=== PATIENT | female | born 1945 | race Caucasian/White ===

== ENCOUNTER 2022-04-12 23:45 | Observation (INO) ==
[2022-04-13] MEDS ORDERED: CARDIZEM INJ 125 MG VIAL ONE (00:35)
--- NOTE | 2022-04-13 00:36 | DR.HTN ---
HPI Time Seen Time Seen by Provider: 04/13/22 00:35 Primary Care Physician Primary Care Physician: HARTMAN Complaints Chief Complaint Doctors Comments: HYPERTENSION WITH HEART PALPATATIONS WHILE LAYING IN BED. Chief Complaint:: HYPERTENSION, HEART RACING AWAY WHILE LYING IN BED COVID-19 Coronavirus risk:travel/contact w/high risk person: No Has patient experienced Coronavirus symptoms: No Source History Provided: Patient and Family Member Mode of Arrival Mode of Arrival: Ambulatory Timing Onset of Chief Complaint: 04/12/22 PMH PMH Past Medical History: Yes Past Medical History: Hypertension Past Surgical History: Yes Surgical History: Other Past Surgical History Comment: CYST REMOVAL Family History History of Family Medical Conditions: Yes Family Medical History: Hypertension Social History Does patient currently use any type of tobacco product: No Have you used tobacco products in the last 12 months: No Type of Tobacco Use: None Does any household member use tobacco: No Alcohol Use: None Do you use any recreational Drugs:: No Lives With: Alone Lives Where: Home Travel Risk Coronavirus risk:travel/contact w/high risk person: No Has patient experienced Coronavirus symptoms: No Infectious screening In the last 2 months have you had wt loss of >10#?: NO Have you had fever, night sweats or hemotysis?: No Have you traveled outside the country in the last 6 months?: No Isolation: Standard ROS Review of Systems Constitutional: Other (RAPID HEART RATE) Eyes: No Symptoms Reported ENTM: No Symptoms Reported Respiratoy: No Symptoms Reported Cardiovascular: Palpitations Gastrointestinal/Abdominal: No Symptoms Reported Genitourinary: No Symptoms Reported Neurological: No Symptoms Reported Musculoskeletal: No Symptoms Reported Integumentary: No Symptoms Reported Hematologic/Lymphatic: No Symptoms Reported Endocrine: No Symptoms Reported Psychiatric: No Symptoms Reported PE Vital Signs Vitals: Temperature 98.1 F Pulse Rate 82 Respiratory Rate 26 Blood Pressure [Left Arm] 166/77 Blood Pressure 119/80 O2 Sat by Pulse Oximetry 98 General Limitations: No Limitations Head Head Exam: Normal Inspection and Atraumatic Eyes Eye exam: Normal Appearance, PERRL and EOMI Pupils: Regular, Round: Bilateral and Reactive: Bilateral Neck Neck Exam: Normal Inspection, Full ROM and Trachea Midline Chest Chest Inspection: Normal Inspection and Symmetric Chest Wall Rise Cardiovascular Cardiovascular Exam: Tachycardia and Irregular Rhythm Abdominal Exam Abdominal Exam: Normal Inspection, Normal Bowel Sounds and Soft Extremities Extremities Exam: Normal Inspection and Full ROM Back Back Exam: Normal Inspection and Full ROM Neurologic Neurological Exam: Alert and Oriented X3 Patient Oriented To: Person, Place and Time Speech: Fluid Speech Cranial Nerve Exam: EOM Function (II, III, IV, ): Normal, Facial Sensation (V): Normal, Facial Palsy (VII): Normal and Gag reflex (XI): Normal Motor Strength - LUE: 5/5 Motor Strength - RUE: 5/5 Motor Strength - LLE: 5/5 Motor Strength - RLE: 5/5 MDM Differential Diagnosis Differential Diagnosis Comment: AFIB WITH RVR COURSE Treatment Treatment: PATIENT REMAINED STABLE DURING ER EVALUTION. WAS INITIALLY GIVEN CARDIZEM 10MG IV TO CONTROL AFIB WITH RVR AND RATE DECREASED FROM 140'S TO 110 - 120'S BUT CONTINUED TO INCREASE BACK UP AND WAS STARTED ON CARDIZEM DRIP AT 10MG/HOUR AND RATE REMAINED BELOW 100BPM. DR JACOBSON WS CALLED AT 453 AND HE STATED THAT HE WOULD ACCEPT THE PATTIENT FOR ADMISSION. THE PATIENT WAS MADE AWRE OF THE INTENT AND AGREED TO THE ADMISSION. ROR Labs Reviewed Laboratory Results Reviewed?: Yes Result Diagrams: 04/13/22 00:26 04/13/22 00:26 Laboratory: WBC 6.1 X10^3/uL (3.6-10.0) 04/13/22 00: RBC 3.87 X10^6/uL (3.5-5.4) 04/13/22 00: Hgb 11.6 g/dL (12.0-16.0) L 04/13/22 00:26 Hct 33.3 % (36.0-47.0) L 04/13/22 00: MCV 86.1 fL (80.0-100.0) 04/13/22 00: MCH 30.1 pg (27.0-34.0) 04/13/22 00: MCHC 34.9 g/dL (33.0-35.0) 04/13/22 00: RDW 14.5 % (11.6-16.5) 04/13/22 00: Plt Count 234 X10^3/uL (150.0-450.0) 04/13/22 00: MPV 7.8 fL (7.4-11.0) 04/13/22 00: Neut % (Auto) 50.3 % (42.0-75.0) 04/13/22 00: Lymph % (Auto) 39.9 % (21.0-51.0) 04/13/22 00:26 [place] % (Auto) 9.7 % (0.0-13.0) 04/13/22 00: Eos % (Auto) 0.0 % (0.9-2.9) L 04/13/22 00: Baso % (Auto) 0.1 % (0.2-1.0) L 04/13/22 00:26 Neut # (Auto) 3.1 x10^3/uL (2.2-4.8) 04/13/22 00: Lymph # (Auto) 2.4 X10^3/uL (1.3-2.9) 04/13/22 00:26 [place] # (Auto) 0.6 x10^3/uL (0.3-0.8) 04/13/22 00: Eos # (Auto) 0.0 x10^3/uL (0.0-0.2) 04/13/22 00: Baso # (Auto) 0.0 X10^3/uL (0.0-0.1) 04/13/22 00: Absolute Nucleated RBC 0.1 /100WBC 04/13/22 00:26 Sodium 142 mmol/L (136-145) 04/13/22 00:26 Corrected Sodium 143 mmol/L (136-145) 04/13/22 00: Potassium 3.5 mmol/L (3.5-5.1) 04/13/22 00: Chloride 107 mmol/L (98-107) 04/13/22 00:26 Carbon Dioxide 24.4 mmol/L (21-32) 04/13/22 00:26 BUN 14 mg/dL (7-18) 04/13/22 00:26 Creatinine 0.76 mg/dL (0.55-1.02) 04/13/22 00:26 Est GFR (MDRD) Af Amer > 60 (>60) 04/13/22 00:26 Est GFR (MDRD) Non-Af > 60 (>60) 04/13/22 00:26 Glucose 129 mg/dL (65-99) H 04/13/22 00:26 Calcium 9.4 mg/dL (8.5-10.1) 04/13/22 00:26 Corrected Calcium TNP 04/13/22 00:26 Total Bilirubin 0.30 mg/dL (0.2-1.0) 04/13/22 00:26 AST 58 Units/L (15-37) H 04/13/22 00:26 ALT 58 Units/L (12-78) 04/13/22 00:26 Alkaline Phosphatase 74 Units/L (46-116) 04/13/22 00:26 Creatine Kinase 127 Units/L (26-192) 04/13/22 04:21 CK-MB (CK-2) 3.4 ng/mL (0-4.0) 04/13/22 04:21 CK/CKMB % Calc 2.7 % (<4) 04/13/22 04:21 Troponin I High Sens 18.8 ng/L (4.0-60.0) 04/13/22 04:21 Total Protein 7.0 g/dL (6.4-8.2) 04/13/22 00:26 Albumin 3.9 g/dL (3.4-5.0) 04/13/22 00:26 Globulin 3.1 g/dL (2.5-4.5) 04/13/22 00:26 Albumin/Globulin Ratio 1.3 Ratio (1.1-2.1) 04/13/22 00:26 SARS-CoV-2 (PCR) Negative (NEGATIVE) 04/13/22 03:57 XRAY XRAY Interpreted by: Self (CHEST XRAY SHOWED NO INTRATHORACIC ABNORMALITY.) EKG Rate: 145 [place]: Normal Rhythm: Afib (AFIB WITH RVR) and VT Opioid Opioid Risk Tool Age (Onur box if 16-45): No History of Preadolescent Sexual Abuse: No Total: 0 Total Score Risk Category: Low Risk Copyright: [employer] LR predicting aberrant behaviors Diagnosis Discharge Problem: Atrial fibrillation with rapid ventricular response
[2022-04-13] MEDS ORDERED: CARDIZEM INJ 50 MG VIAL IVP ONE (00:37)
[2022-04-13 00:50] LABS: HEMOGLOBIN 11.6 g/dL (12.0-16.0); MEAN PLATELET VOLUME 7.8 fL (7.4-11.0); WHITE BLOOD COUNT 6.1 X10^3/uL (3.6-10.0)
[2022-04-13 00:53] LABS: BASOPHILS % (AUTO) 0.1 % (0.2-1.0); HEMATOCRIT 33.3 % (36.0-47.0); LYMPHOCYTES # (AUTO) 2.4 X10^3/uL (1.3-2.9); LYMPHOCYTES % (AUTO) 39.9 % (21.0-51.0); MEAN CORPUSCULAR HEMOGLOBIN 30.1 pg (27.0-34.0); MEAN CORPUSCULAR HGB CONC 34.9 g/dL (33.0-35.0); MEAN CORPUSCULAR VOLUME 86.1 fL (80.0-100.0); MONOCYTES # (AUTO) 0.6 x10^3/uL (0.3-0.8); MONOCYTES % (AUTO) 9.7 % (0.0-13.0); NEUTROPHILS # (AUTO) 3.1 x10^3/uL (2.2-4.8); NEUTROPHILS % (AUTO) 50.3 % (42.0-75.0); RED BLOOD COUNT 3.87 X10^6/uL (3.5-5.4); RED CELL DISTRIBUTION WIDTH 14.5 % (11.6-16.5)
[2022-04-13 01:14] LABS: ALANINE AMINOTRANSFERASE 58 Units/L (12-78); ALBUMIN 3.9 g/dL (3.4-5.0); ALKALINE PHOSPHATASE 74 Units/L (46-116); ASPARTATE AMINO TRANSFERASE 58 Units/L (15-37); BLOOD UREA NITROGEN 14 mg/dL (7-18); CALCIUM 9.4 mg/dL (8.5-10.1); CARBON DIOXIDE 24.4 mmol/L (21-32); CHLORIDE 107 mmol/L (98-107); CKMB % 2.7 % (<4); COR NA(FOR HYPERGLY) 143 mmol/L (136-145); CREATINE KINASE 158 Units/L (26-192); CREATINE KINASE MB 4.3 ng/mL (0-4.0); CREATININE 0.76 mg/dL (0.55-1.02); SODIUM 142 mmol/L (136-145); eGFR NON BLACK RACES > 60 (>60)
[2022-04-13] MEDS ORDERED: DILTIAZEM 125mg/125mL-0.7%NACL 125 MG/125 ML PLAST..BAG IV PRN (02:17)
[2022-04-13] MEDS ORDERED: NICARDIPINE IV ONE (02:18)
[2022-04-13] MEDS ORDERED: DILTIAZEM 125mg/125mL-0.7%NACL 125 MG/125 ML PLAST..BAG IV ONE (02:28)
[2022-04-13 04:49] LABS: CKMB % 2.7 % (<4); CREATINE KINASE MB 3.4 ng/mL (0-4.0)
[2022-04-13 05:34] LABS: BASOPHILS % (AUTO) 0.3 % (0.2-1.0); EOSINOPHILS % (AUTO) 0.4 % (0.9-2.9); HEMOGLOBIN 10.9 g/dL (12.0-16.0); LYMPHOCYTES # (AUTO) 2.5 X10^3/uL (1.3-2.9); LYMPHOCYTES % (AUTO) 41.4 % (21.0-51.0); MEAN CORPUSCULAR HEMOGLOBIN 29.1 pg (27.0-34.0); MEAN CORPUSCULAR HGB CONC 33.9 g/dL (33.0-35.0); MEAN CORPUSCULAR VOLUME 85.8 fL (80.0-100.0); MEAN PLATELET VOLUME 7.8 fL (7.4-11.0); MONOCYTES # (AUTO) 0.7 x10^3/uL (0.3-0.8); MONOCYTES % (AUTO) 10.9 % (0.0-13.0); NEUTROPHILS # (AUTO) 2.8 x10^3/uL (2.2-4.8); RED BLOOD COUNT 3.73 X10^6/uL (3.5-5.4); RED CELL DISTRIBUTION WIDTH 14.4 % (11.6-16.5)
[2022-04-13 05:46] LABS: ALANINE AMINOTRANSFERASE 52 Units/L (12-78); ALBUMIN 3.5 g/dL (3.4-5.0); ALKALINE PHOSPHATASE 69 Units/L (46-116); ASPARTATE AMINO TRANSFERASE 44 Units/L (15-37); BLOOD UREA NITROGEN 12 mg/dL (7-18); CALCIUM 9.1 mg/dL (8.5-10.1); CARBON DIOXIDE 27.8 mmol/L (21-32); CHLORIDE 107 mmol/L (98-107); COR NA(FOR HYPERGLY) 142 mmol/L (136-145); CREATININE 0.54 mg/dL (0.55-1.02); SODIUM 141 mmol/L (136-145); TOTAL PROTEIN 6.4 g/dL (6.4-8.2); eGFR NON BLACK RACES > 60 (>60)
--- NOTE | 2022-04-13 06:18 | RAD ---
HISTORYCHEST PAIN HYPERTENSION, HEART RACING AWAY WHILE LYING IN BEDSTUDYCHEST, 1 [id number] trachea is midline. The cardiac silhouette is unremarkable. The lungs are clear without focal infiltrate or effusion. The bony thorax is unremarkable. Bilateral breast augmentation prostheses with capsular calcification..IMPRESSIONNo acute cardiopulmonary findings .Electronically signed by: Yonny Orona (Apr 13, 2022 06:17:13)
[2022-04-13 06:29] VITALS: BMI 24.7
[2022-04-13 08:26] LABS: CKMB % 2.6 % (<4); CREATINE KINASE MB 2.8 ng/mL (0-4.0)
[2022-04-13] MEDS ORDERED: TYLENOL 325 MG TAB PO PRN (08:51)
[2022-04-13] MEDS ORDERED: LOVENOX INJ 60 MG SYR SC SCH (09:00)
[2022-04-13] MEDS ORDERED: CARDIZEM CD 180 MG 24-HR PO SCH (09:00)
[2022-04-13] MEDS: ELIQUIS PO SCH ×2 (10:05→20:27)
[2022-04-13] MEDS: VASOTEC TAB 10 MG PO SCH ×2 (10:06→10:44)
[2022-04-13] MEDS: SYNTHROID 25 mcg TAB PO SCH ×2 (10:06→14:54)
[2022-04-13] MEDS: NORVASC TAB 5 MG PO SCH ×2 (10:06→10:44)
[2022-04-13] MEDS ORDERED: K-DUR TAB 20 MEQ PO PRN (14:31)
[2022-04-13] MEDS ORDERED: MICRO K EXTEN CAP 10 MEQ PO PRN (14:31)
[2022-04-13] MEDS ORDERED: POTASSIUM CHL 60 MEQ/NS 0.45% 500 ML IV PRN (14:31)
[2022-04-13] MEDS ORDERED: POTASSIUM CHLORIDE LIQ 20 MEQ UDC PO PRN (14:31)
[2022-04-13] MEDS ORDERED: MAGNESIUM SULFATE 1 GRAM/100 mL PREMIX 1 G/100 ML BAG IV PRN (14:31)
[2022-04-13] MEDS ORDERED: POTASSIUM CHL 40 MEQ/NS 0.45% 500 ML IV PRN (14:31)
[2022-04-13] MEDS ORDERED: KLOR-CON PO PRN (14:31)
[2022-04-13] MEDS ORDERED: K-RIDER 10 MEQ/NS 100 ML 10 MEQ/100 ML BAG IV PRN (14:31)
--- NOTE | 2022-04-13 18:10 | DR.H&P ---
H&P - History & Physical for Day of: H&P Date: 04/13/22 - Chief Complaint Chief Complaint: PALPATATIONS AND HYPERTENSION - History of Present Illness History of Present Illness: IS A 76 YEAR OLD PATIENT OF PAT imo.im. SHE PRESENTED TO THE ER WITH COMPLAINTS OF HYPERTENSION, HYPERLIPIDEMIA, AND PALPATATION. SYMPTOMS STARTED ABOUT AN HOUR PRIOR TO ARRIVAL. PATIENT REPORTED THAT SHE FELT LIKE HER HEART WAS RUNNING AWAY FROM HER. WHEN SHE CHECKED HER PULSE, IT WAS IN THE 150s. HER BLOOD PRESSURE WAS 190/115. HER PMH INCLUDES HTN AND HYPOTHYROIDISM. ON ARRIVAL TO THE ER, HER VITALS WERE: 98.1-116-16-98%-192/106. LABS WERE OBTAINED. WBC 6.1, RBC 3.87, HGB 11.6, HCT 33.3, SODIUM 142, POTASSIUM 3.5, CHLORIDE 107, BUN 14, CREATININE 0.76, GLUCOSE 129, CALCIUM 9.4, AST 58, ALT 58, ALK PHOS 74, CK-MB 4.3, TOTAL PROTEIN 7.0, ALBUMIN 3.9. TROPONIN WAS NEGATIVE. EKG WAS OBTAINED AND REVEALED: ATRIAL FIBRILLATION WITH RAPID VENTRICULAR RATE. HER HR WAS 124. IN THE ER, SHE WAS STARTED ON A CARDIZEM DRIP. HER HEART RATE DECREASED TO THE 90s AND HER BLOOD PRESSURE DECREASED TO 145/75. SHE WAS ADMITTED TO THE INTENSIVE CARE UNIT INPATIENT STATUS FOR FURTHER EVALUATION AND TREATMENT OF NEW ONSET A-FIB WITH RVR. SHE WAS STARTED ON THE CARDIZEM DRIP, NORVASC 5MG PO DAILY, ELIQUIS 5MG PO DAILY, ENALAPRIL 10MG PO DAILY, LEVOTHYROXINE 25MCG PO DAILY, SIVASTATIN 10MG PO HS, AND THE POTASSIUM AND MAGNESIUM PROTOCOLS. SHE WAS PLACED ON THE MORGUE KEEPER. ON MORNING ROUNDS, PATIENT WAS ALERT AND ORIENTED, LYING IN BED ON MORNING ROUNDS. SHE REPORTED SOME IMPROVEMENT IN SYMPTOMS. HER HEARTRATE WAS NOTED TO BE ANYWHERE FROM 70-115 THROUGHOUT THE NIGHT. MORGUE KEEPER AND EXAMINATION REVEALED THAT PATIENT CONTINUED TO BE IN ATRIAL FIBRILLATION. TODAY, WE WILL DISCONTINUE THE CARDIZEM DRIP. WE WILL START CARDIZEM CD 180MG PO DAILY. OTHERWISE, WE WILL FOLLOW UP WITH LABS AND EKGS AND CONTINUE TO MONITOR. TIME SPENT ON CLINICAL ASSESSMENT, REVIEWING LABS AND IMAGING, DECISION MAKING, AND DOCUMENTATION GREATER THAN 75 MINUTES. - Past Medical History Past Medical History: Dyslipidemia, Hypertension, Hypothyroidism - Past Surgical History Surgical History: Hysterectomy, Other Additional Surgical History: BREAST AUGMENTATION, CATARACT SURGERY, OVARIAN CYST REMOVED - Family History Family Medical History: Cancer, [place] - Social History Does patient currently use any type of tobacco product: No Have you used tobacco products in the last 12 months: No Type of Tobacco Use: None Does any household member use tobacco: No Alcohol Use: None Drug Use: None - Medications Home Medications: Sulfa (Sulfonamide Antibiotics) [SULFA] Allergy (Verified 09/21/20 00:49) CONTINUE taking the following medications amlodipine 5 mg tablet 1 tab PO DAILY 04/13/22 [History] enalapril maleate 10 mg tablet 1 tab PO DAILY 04/13/22 [History] levofloxacin 500 mg tablet 500 tab PO DAILY 04/13/22 [History] levothyroxine 25 mcg tablet 1 tab PO DAILY 04/13/22 [History] methylprednisolone 4 mg tablets in a dose pack 12 mg PO DAILY 04/13/22 [History] simvastatin 10 mg tablet 1 tab PO HS 04/13/22 [History] - Review of Systems Constitutional: No Symptoms Reported Eyes: No Symptoms Reported ENT: No Symptoms Reported Respiratory: No Symptoms Reported Cardiovascular: See HPI, Palpitations Gastrointestinal: No Symptoms Reported Genitourinary: No Symptoms Reported Musculoskeletal: No Symptoms Reported Skin: No Symptoms Reported Neurological: Weakness - Physical Exam Vital Signs: Temperature 98.1 F Pulse Rate [Apical] 102 Pulse Rate 115 Respiratory Rate 20 Blood Pressure [Left Arm] 119/80 Blood Pressure 142/74 O2 Sat by Pulse Oximetry 96 Oriented: Normal Eyes: Normal Ear: Normal Nose: Normal Throat: Normal Respiratory: Clear Throughout Cardiovascular: Tachycardia, Irregular : Normal Auscultation: Bowel Sounds: Normal Palpation: Normal Tenderness: Normal Skin: Normal Musculoskeletal: Normal Psychiatric: Normal Mood Description: Calm Affect: Normal Speech Pattern: Clear - Assessment/Plan (1) Atrial fibrillation with rapid ventricular response Status: Acute Plan: ADMIT, CARDIZEM DRIP THEN CONVERT TO CARDIZEM CD 180MG PO DAILY, ELIQUIS 5MG PO BID, POTASSIUM AND MAGNESIUM PROTOCOLS, RESUME HOME MEDS (2) Hypertension, uncontrolled Status: Acute (3) Hypokalemia Status: Acute - Allergies Allergies/Adverse Reactions: Allergies Allergy/AdvReac Type Severity Reaction Status Date / Time Sulfa (Sulfonamide Allergy Verified 09/21/20 00:49 Antibiotics) [SULFA]
[2022-04-13] MEDS: ZOCOR TAB 10 MG PO SCH (20:27)
[2022-04-14 04:57] LABS: BASOPHILS % (AUTO) 0.1 % (0.2-1.0); HEMATOCRIT 34.2 % (36.0-47.0); HEMOGLOBIN 11.5 g/dL (12.0-16.0); LYMPHOCYTES # (AUTO) 1.9 X10^3/uL (1.3-2.9); LYMPHOCYTES % (AUTO) 32.5 % (21.0-51.0); MEAN CORPUSCULAR HEMOGLOBIN 28.9 pg (27.0-34.0); MEAN CORPUSCULAR HGB CONC 33.7 g/dL (33.0-35.0); MEAN CORPUSCULAR VOLUME 85.9 fL (80.0-100.0); MEAN PLATELET VOLUME 7.8 fL (7.4-11.0); MONOCYTES # (AUTO) 0.5 x10^3/uL (0.3-0.8); MONOCYTES % (AUTO) 9.2 % (0.0-13.0); NEUTROPHILS # (AUTO) 3.5 x10^3/uL (2.2-4.8); NEUTROPHILS % (AUTO) 58.2 % (42.0-75.0); RED BLOOD COUNT 3.98 X10^6/uL (3.5-5.4); RED CELL DISTRIBUTION WIDTH 14.7 % (11.6-16.5); WHITE BLOOD COUNT 5.9 X10^3/uL (3.6-10.0)
[2022-04-14 05:18] LABS: ALANINE AMINOTRANSFERASE 45 Units/L (12-78); ALBUMIN 3.4 g/dL (3.4-5.0); ALKALINE PHOSPHATASE 66 Units/L (46-116); ASPARTATE AMINO TRANSFERASE 25 Units/L (15-37); BLOOD UREA NITROGEN 12 mg/dL (7-18); CALCIUM 9.5 mg/dL (8.5-10.1); CARBON DIOXIDE 29.3 mmol/L (21-32); CHLORIDE 107 mmol/L (98-107); COR NA(FOR HYPERGLY) 140 mmol/L (136-145); CREATININE 0.69 mg/dL (0.55-1.02); SODIUM 140 mmol/L (136-145); TOTAL PROTEIN 6.3 g/dL (6.4-8.2); eGFR NON BLACK RACES > 60 (>60)
[2022-04-14] MEDS: SYNTHROID 25 mcg TAB PO SCH (06:42)
[2022-04-14] MEDS: CARDIZEM CD 120 MG 24-HR PO SCH (09:10)
[2022-04-14] MEDS: ELIQUIS PO SCH ×2 (09:11→20:06)
[2022-04-14] MEDS: VASOTEC TAB 10 MG PO SCH (09:11)
[2022-04-14] MEDS: NORVASC TAB 5 MG PO SCH (09:11)
[2022-04-14] MEDS: ZOCOR TAB 10 MG PO SCH (20:06)
--- NOTE | 2022-04-14 23:20 | PCM.PROG ---
Progress Note - Progress Note for Day of Date of Exam: 04/14/22 - Subjective Subjective: WAS ADMITTED FOR ATRIAL FIBRILLATION WITH RVR, HYPERTENSION, AND HYPOKALEMIA. SHE WAS INTIALLY ON A CARDIZEM DRIP, BUT WAS CONVERTED TO CARDIZEM CD 180MG PO DAILY. NURSING STAFF REPORTS THAT THROUGHOUT THE NIGHT, WHILE PATIENT WAS RESTING, HER HEART RATE DROPPED INTO THE 40s ON SE VERAL OCCASIONS. TODAY, SHE IS ALERT AND ORIENTED, LYING IN BED ON MORNING ROUNDS. SHE DENIES CURRENT COMPLAINTS. ON EXAMINATION, SHE IS BRADYCARDIC WITH HR IN THE 50s. BILATERAL LUNGS ARE CLEAR TO AUSCULTATION. ABDOMEN IS ROUND, SOFT, AND NON-TENDER WITH NORMAL BOWEL SOUNDS NOTED IN ALL QUADRANTS. HER VITALS THIS MORNING ARE: 97.9-55-16-97%-158/76. LABS WERE OBTAINED. WBC 5.9, RBC 3.98, HGB 11.5, HCT 34.2, SODIUM 140, POTASSIUM 4.8, BUN 17, CREATININE 0.69, GLUCOSE 117, CALCIUM 9.5, TOTAL PROTEIN 6.3, ALBUMIN 3.4. CARDIAC ENZYMES HAVE BEEN WITHIN NORMAL LIMITS. SHE IS CURRENTLY RECEIVING: CARDIZEM CD 180MG PO DAILY, NORVASC 5MG PO DAILY, ELIQUIS 5MG PO DAILY, ENALAPRIL 10MG PO DAILY, LEVOTH YROXINE 25MCG PO DAILY, SIVASTATIN 10MG PO HS, AND THE POTASSIUM AND MAGNESIUM PROTOCOLS. WE WILL CHANGED THE DOSE OF THE CARDIZEM TO 120MG PO DAILY TODAY. OTHERWISE, WE PLAN TO FOLLOW UP WITH AM LABS AND CONTINUE TO MONITOR. TIME SPENT ON CLINICAL ASSESSMENT, REVIEWING LABS AND IMAGING, DECISION MAKING, AND DOCUMENTATION GREATER THAN 45 MINUTES. - Past Medical Family Social History Past Med/Fam/Surg Hx: No changes since H&P Allergies: Allergies Sulfa (Sulfonamide Antibiotics) [SULFA] Allergy (Verified 09/21/20 00:49) - Review of Systems ROS: No change since H&P - Vital Signs and I&O's Vital Signs: Temperature 97.9 F Pulse Rate [Apical] 102 Pulse Rate 52 Respiratory Rate 24 Blood Pressure [Left Arm] 119/80 Blood Pressure 152/73 O2 Sat by Pulse Oximetry 98 Intake and Output: Intake & Output 06/24/22 06/25/22 06/26/22 06/27/22 11:59 11:59 11:59 11:59 Intake Total 2112 640 / 640 Balance 2112 640 / 640 - Physical Exam Oriented: Normal Eyes: Normal Ear: Normal Nose: Normal Throat: Normal Cardiovascular: Normal, Bradycardia : Normal Auscultation: Bowel Sounds: Normal Palpation: Normal Tenderness: Normal Skin: Normal Musculoskeletal: Normal Psychiatric: Normal Mood Description: Calm Affect: Normal Speech Pattern: Clear, Appropriate - Laboratory and Diagnostics Result Diagrams: 04/14/22 04:05 04/14/22 04:05 Labs: Laboratory WBC 5.9 X10^3/uL (3.6-10.0) 04/14/22 04:05 RBC 3.98 X10^6/uL (3.5-5.4) 04/14/22 04:05 Hgb 11.5 g/dL (12.0-16.0) L 04/14/22 04:05 Hct 34.2 % (36.0-47.0) L 04/14/22 04:05 MCV 85.9 fL (80.0-100.0) 04/14/22 04:05 MCH 28.9 pg (27.0-34.0) 04/14/22 04:05 MCHC 33.7 g/dL (33.0-35.0) 04/14/22 04:05 RDW 14.7 % (11.6-16.5) 04/14/22 04:05 Plt Count 246 X10^3/uL (150.0-450.0) 04/14/22 04:05 MPV 7.8 fL (7.4-11.0) 04/14/22 04:05 Neut % (Auto) 58.2 % (42.0-75.0) 04/14/22 04:05 Lymph % (Auto) 32.5 % (21.0-51.0) 04/14/22 04:05 [place] % (Auto) 9.2 % (0.0-13.0) 04/14/22 04:05 Eos % (Auto) 0.0 % (0.9-2.9) L 04/14/22 04:05 Baso % (Auto) 0.1 % (0.2-1.0) L 04/14/22 04:05 Neut # (Auto) 3.5 x10^3/uL (2.2-4.8) 04/14/22 04:05 Lymph # (Auto) 1.9 X10^3/uL (1.3-2.9) 04/14/22 04:05 [place] # (Auto) 0.5 x10^3/uL (0.3-0.8) 04/14/22 04:05 Eos # (Auto) 0.0 x10^3/uL (0.0-0.2) 04/14/22 04:05 Baso # (Auto) 0.0 X10^3/uL (0.0-0.1) 04/14/22 04:05 Absolute Nucleated RBC 0.1 /100WBC 04/14/22 04:05 Sodium 140 mmol/L (136-145) 04/14/22 04:05 Corrected Sodium 140 mmol/L (136-145) 04/14/22 04:05 Potassium 4.8 mmol/L (3.5-5.1) 04/14/22 04:05 Chloride 107 mmol/L (98-107) 04/14/22 04:05 Carbon Dioxide 29.3 mmol/L (21-32) 04/14/22 04:05 BUN 12 mg/dL (7-18) 04/14/22 04:05 Creatinine 0.69 mg/dL (0.55-1.02) 04/14/22 04:05 Est GFR (MDRD) Af Amer > 60 (>60) 04/14/22 04:05 Est GFR (MDRD) Non-Af > 60 (>60) 04/14/22 04:05 Glucose 117 mg/dL (65-99) H 04/14/22 04:05 Calcium 9.5 mg/dL (8.5-10.1) 04/14/22 04:05 Corrected Calcium TNP 04/14/22 04:05 Magnesium 2.0 mg/dL (1.7-2.9) 04/13/22 05:20 Total Bilirubin 0.40 mg/dL (0.2-1.0) 04/14/22 04:05 AST 25 Units/L (15-37) 04/14/22 04:05 ALT 45 Units/L (12-78) 04/14/22 04:05 Alkaline Phosphatase 66 Units/L (46-116) 04/14/22 04:05 Creatine Kinase 109 Units/L (26-192) 04/13/22 07:55 CK-MB (CK-2) 2.8 ng/mL (0-4.0) 04/13/22 07:55 CK/CKMB % Calc 2.6 % (<4) 04/13/22 07:55 Troponin I High Sens 20.8 ng/L (4.0-60.0) 04/13/22 07:55 Total Protein 6.3 g/dL (6.4-8.2) L 04/14/22 04:05 Albumin 3.4 g/dL (3.4-5.0) 04/14/22 04:05 Globulin 2.9 g/dL (2.5-4.5) 04/14/22 04:05 Albumin/Globulin Ratio 1.2 Ratio (1.1-2.1) 04/14/22 04:05 SARS-CoV-2 (PCR) Negative (NEGATIVE) 04/13/22 03:57 - Plan (1) Atrial fibrillation with rapid ventricular response Status: Acute Plan: CARDIZEM CD 120MG PO DAILY, ELIQUIS 5MG PO BID, POTASSIUM AND MAGNESIUM PROTOCOLS, RESUME HOME MEDS (2) Hypertension, uncontrolled Status: Acute (3) Hypokalemia Status: Acute
[2022-04-15 05:10] LABS: ALANINE AMINOTRANSFERASE 38 Units/L (12-78); ALBUMIN 3.5 g/dL (3.4-5.0); ALKALINE PHOSPHATASE 68 Units/L (46-116); ASPARTATE AMINO TRANSFERASE 17 Units/L (15-37); BLOOD UREA NITROGEN 12 mg/dL (7-18); CALCIUM 9.4 mg/dL (8.5-10.1); CARBON DIOXIDE 27.2 mmol/L (21-32); CHLORIDE 106 mmol/L (98-107); CREATININE 0.66 mg/dL (0.55-1.02); SODIUM 139 mmol/L (136-145); TOTAL PROTEIN 6.5 g/dL (6.4-8.2); eGFR NON BLACK RACES > 60 (>60)
[2022-04-15 05:12] LABS: BASOPHILS % (AUTO) 0.2 % (0.2-1.0); HEMATOCRIT 35.9 % (36.0-47.0); LYMPHOCYTES # (AUTO) 2.3 X10^3/uL (1.3-2.9); MEAN CORPUSCULAR HEMOGLOBIN 28.9 pg (27.0-34.0); MEAN CORPUSCULAR HGB CONC 33.5 g/dL (33.0-35.0); MEAN CORPUSCULAR VOLUME 86.2 fL (80.0-100.0); MEAN PLATELET VOLUME 7.7 fL (7.4-11.0); MONOCYTES # (AUTO) 0.6 x10^3/uL (0.3-0.8); MONOCYTES % (AUTO) 8.3 % (0.0-13.0); NEUTROPHILS # (AUTO) 4.1 x10^3/uL (2.2-4.8); NEUTROPHILS % (AUTO) 58.5 % (42.0-75.0); RED BLOOD COUNT 4.16 X10^6/uL (3.5-5.4); RED CELL DISTRIBUTION WIDTH 14.6 % (11.6-16.5)
[2022-04-15] MEDS: SYNTHROID 25 mcg TAB PO SCH (06:04)
[2022-04-15] MEDS: CARDIZEM CD 120 MG 24-HR PO SCH (08:18)
[2022-04-15] MEDS: ELIQUIS PO SCH (08:19)
[2022-04-15] MEDS: VASOTEC TAB 10 MG PO SCH (08:19)
[2022-04-15] MEDS: NORVASC TAB 5 MG PO SCH (08:19)
[2022-04-15 11:10] VITALS: BP 125/71
== END 2022-04-15 12:05 | disposition home or self-care (01) | DRG 310 ==
LOC: ER 04-13 00:01 → INTOOBSV 04-13 05:14 → ICU 04-13 05:14
PROVIDERS: ADMIT Internal Medicine; ATTEND Internal Medicine
DX: E78.2 Mixed hyperlipidemia; I10 Essential (primary) hypertension; Z79.899 Other long term (current) drug therapy; E87.6 Hypokalemia; E03.8 Other specified hypothyroidism; R94.31 Abnormal electrocardiogram [ECG] [EKG]; R79.89 Other specified abnormal findings of blood chemistry; I48.91 Unspecified atrial fibrillation

== ENCOUNTER 2025-01-08 22:50 | Observation (INO) ==
[2025-01-08 23:07] VITALS: BMI 24.0
--- NOTE | 2025-01-08 23:30 | DR.GENAD ---
HPI Time Seen Time Seen by Provider: 01/08/25 23:28 PCP Primary Care Physician: JUAN HARTMAN HPI Comment HPI Comment: According to pt she has hx of ablation after diagnosed with afib. Had been doing well. Clemente experienced sudden onset of racing heartbeat while watching TV. and then resolved on its own. Checked her bp it was over 200 systolic .Came to Er for evaluation Complaint/Symptoms Chief Complaint Doctors Comments: heart racing Chief Complaint:: PT C/O HEART RACING WHILE LYING DOWN IN THE BED. SHE STATED THAT WHILE THE EPISODE WAS HAPPENING HER HEAD STARTING HURTING ALSO. SHE STATED SHE CHECKED HER B/P AND IT WAS ELEVATED ALSO 226/114. SHE STATED SHE CHECKED IT AGAIN AND IT WAS STILL ELEVATED. Self Treatment fo Chief Complaint: GOODY POWDER BEFORE SHE LAID DOWN. Nurses notes reviewed Nurses Notes Review: Yes Source History Provided: Patient Mode of Arrival Mode of Arrival: Ambulatory Timing Onset of Chief Complaint: 01/08/25 Came on: Suddenly Duration Duration: Intermittent Duration: Minutes PMH PMH Past Medical History: Yes Past Medical History: Hypertension Past Medical History Comment: AFIB AND HIGH CHOLESTEROL Past Surgical History: Yes Surgical History: Hysterectomy and Other Past Surgical History Comment: HEART ABLASION Family History History of Family Medical Conditions: No Family Medical History: Cancer, MA, Coronary Artery Disease and Sudden Cardiac Social History Do you use any recreational Drugs:: No Lives With: Family Lives Where: Home Infectious screening Have you traveled outside the country in the last 6 months?: No Isolation: Standard ROS Review of Systems Constitutional: No Symptoms Reported Eyes: No Symptoms Reported ENTM: No Symptoms Reported Respiratoy: No Symptoms Reported Cardiovascular: No Symptoms Reported Gastrointestinal/Abdominal: No Symptoms Reported Genitourinary: No Symptoms Reported Neurological: No Symptoms Reported Musculoskeletal: No Symptoms Reported Integumentary: No Symptoms Reported PE Vital Signs Vitals: Vital Signs Temperature 97.7 F Pulse Rate 115 Pulse Rate 125 Pulse Rate 123 Pulse Rate 105 Pulse Rate 131 Pulse Rate 107 Pulse Rate 134 Pulse Rate 132 Pulse Rate 110 Pulse Rate 117 Pulse Rate 122 Pulse Rate 153 Pulse Rate 148 Pulse Rate 147 Pulse Rate 91 Pulse Rate 75 Pulse Rate 75 Pulse Rate 70 Pulse Rate 79 Pulse Rate 74 Pulse Rate 75 Pulse Rate 72 Respiratory Rate 23 Respiratory Rate 20 Respiratory Rate 16 Respiratory Rate 20 Respiratory Rate 20 Respiratory Rate 25 Respiratory Rate 27 Respiratory Rate 25 Respiratory Rate 19 Respiratory Rate 19 Respiratory Rate 20 Respiratory Rate 18 Respiratory Rate 20 Respiratory Rate 34 Respiratory Rate 23 Respiratory Rate 23 Respiratory Rate 25 Respiratory Rate 19 Respiratory Rate 27 Respiratory Rate 25 Respiratory Rate 20 Blood Pressure 142/72 Blood Pressure 123/62 Blood Pressure 115/56 Blood Pressure 122/58 Blood Pressure 136/66 Blood Pressure 131/62 Blood Pressure 129/62 Blood Pressure 144/67 Blood Pressure 146/63 Blood Pressure 134/62 Blood Pressure 163/82 Blood Pressure 217/105 Blood Pressure 188/88 Blood Pressure 209/94 Blood Pressure 186/88 Blood Pressure 186/89 Blood Pressure 195/96 Blood Pressure 214/100 Blood Pressure 228/106 Blood Pressure 249/114 Blood Pressure 215/97 O2 Sat by Pulse Oximetry 97 O2 Sat by Pulse Oximetry 99 O2 Sat by Pulse Oximetry 99 O2 Sat by Pulse Oximetry 99 O2 Sat by Pulse Oximetry 99 O2 Sat by Pulse Oximetry 99 O2 Sat by Pulse Oximetry 99 O2 Sat by Pulse Oximetry 97 O2 Sat by Pulse Oximetry 97 O2 Sat by Pulse Oximetry 100 O2 Sat by Pulse Oximetry 100 O2 Sat by Pulse Oximetry 100 O2 Sat by Pulse Oximetry 100 O2 Sat by Pulse Oximetry 100 O2 Sat by Pulse Oximetry 100 O2 Sat by Pulse Oximetry 100 O2 Sat by Pulse Oximetry 100 O2 Sat by Pulse Oximetry 100 O2 Sat by Pulse Oximetry 100 O2 Sat by Pulse Oximetry 100 O2 Sat by Pulse Oximetry 99 O2 Sat by Pulse Oximetry 98 General Limitations: No Limitations General Appearance: Alert and Anxious Head Head Exam: Normal Inspection, Atraumatic and Normocephalic Eyes Eye exam: Normal Appearance, PERRL and EOMI ENT ENT Exam: Normal Exam and Normal Oropharynx TM/Canal Exam: Bilateral: Normal Throat Exam: Normal Inspection Neck Neck Exam: Normal Inspection Chest Chest Inspection: Normal Inspection and Symmetric Chest Wall Rise Respiratory Respiratory Exam: Normal Lung Sounds Bilat Respiratory Exam: Bilateral: Clear to Auscultation Cardiovascular Cardiovascular Exam: +S1 and +S2 Abdominal Exam Abdominal Exam: Normal Inspection, Normal Bowel Sounds and Soft Neurologic Neurological Exam: Alert, Oriented X3, CN II-XII Intact and Reflexes Normal Skin Skin Exam: Normal Color MDM Differential Diagnosis Differential Diagnosis: hypertensive urgency,hx of afib ablation COURSE Treatment Treatment: hydralazine ,labs ROR Labs Reviewed 01/08/25 23:44 01/08/25 23:44 Laboratory: WBC 4.4 X10^3/uL (3.6-10.0) 01/08/25 23:44 RBC 3.72 X10^6/uL (3.5-5.4) 01/08/25 23:44 Hgb 11.0 g/dL (12.0-16.0) L 01/08/25 23:44 Hct 32.8 % (36.0-47.0) L 01/08/25 23:44 MCV 88.2 fL (80.0-100.0) 01/08/25 23:44 MCH 29.5 pg (27.0-34.0) 01/08/25 23:44 MCHC 33.4 g/dL (33.0-35.0) 01/08/25 23:44 RDW 14.8 % (11.6-16.5) 01/08/25 23:44 Plt Count 186 X10^3/uL (150.0-450.0) 01/08/25 23:44 MPV 7.7 fL (7.4-11.0) 01/08/25 23:44 Neut % (Auto) 57.5 % (42.0-75.0) 01/08/25 23:44 Lymph % (Auto) 30.9 % (21.0-51.0) 01/08/25 23:44 Dyer % (Auto) 10.4 % (0.0-13.0) 01/08/25 23:44 Eos % (Auto) 0.1 % (0.9-2.9) L 01/08/25 23:44 Baso % (Auto) 1.1 % (0.2-1.0) H 01/08/25 23:44 Neut # (Auto) 2.5 x10^3/uL (2.2-4.8) 01/08/25 23:44 Lymph # (Auto) 1.4 X10^3/uL (1.3-2.9) 01/08/25 23:44 Dyer # (Auto) 0.5 x10^3/uL (0.3-0.8) 01/08/25 23:44 Eos # (Auto) 0.0 x10^3/uL (0.0-0.2) 01/08/25 23:44 Baso # (Auto) 0.0 X10^3/uL (0.0-0.1) 01/08/25 23:44 Absolute Nucleated RBC 0.0 /100WBC 01/08/25 23:44 Sodium 144 mmol/L (136-145) 01/08/25 23:44 Corrected Sodium 144 mmol/L (136-145) 01/08/25 23:44 Potassium 3.7 mmol/L (3.5-5.1) 01/08/25 23:44 Chloride 105 mmol/L (98-107) 01/08/25 23:44 Carbon Dioxide 30.0 mmol/L (21-32) 01/08/25 23:44 BUN 21 mg/dL (7-18) H 01/08/25 23:44 Creatinine 0.78 mg/dL (0.55-1.02) 01/08/25 23:44 Est GFR (MDRD) Af Amer > 60 (>60) 01/08/25 23:44 Est GFR (MDRD) Non-Af > 60 (>60) 01/08/25 23:44 Glucose 111 mg/dL (65-99) H 01/08/25 23:44 Calcium 9.7 mg/dL (8.5-10.1) 01/08/25 23:44 Corrected Calcium TNP 01/08/25 23:44 Magnesium 1.9 mg/dL (2.0-2.9) L 01/08/25 23:44 Total Bilirubin 0.30 mg/dL (0.2-1.0) 01/08/25 23:44 AST 34 Units/L (15-37) 01/08/25 23:44 ALT 29 Units/L (12-78) 01/08/25 23:44 Alkaline Phosphatase 80 Units/L (46-116) 01/08/25 23:44 Creatine Kinase 173 Units/L (26-192) 01/08/25 23:44 Troponin I High Sens 11.0 ng/L (4.0-60.0) 01/08/25 23:44 Total Protein 7.2 g/dL (6.4-8.2) 01/08/25 23:44 Albumin 3.9 g/dL (3.4-5.0) 01/08/25 23:44 Globulin 3.3 g/dL (2.5-4.5) 01/08/25 23:44 Albumin/Globulin Ratio 1.2 Ratio (1.1-2.1) 01/08/25 23:44 TSH 3rd Generation 3.298 uIU/mL (0.358-3.74) 01/08/25 23:44 Opioid Opioid Risk Tool Age (Onur box if 16-45): No History of Preadolescent Sexual Abuse: No Total: 0 Total Score Risk Category: Low Risk Copyright: [facility] predicting aberrant behaviors Discharge Plan Diagnosis Discharge Problem: Atrial fibrillation with rapid ventricular response, HTN (hypertension), Hypothyroid Discharge Plan Patient Disposition: ADMITTED INPATIENT Condition: Stable Prescriptions: Continued simvastatin 10 mg tablet 10 mg PO HS levothyroxine 25 mcg tablet 25 mcg PO DAILY Eliquis 5 mg Tablet 5 mg PO BID Qty: 60 3RF Rx Instructions: take one tablet twice a day metoprolol succinate 25 mg tablet extended release 24 hr 25 mg PO HS Discontinued clonidine HCl 0.1 mg Tablet 0.1 mg PO PRN PRN lisinopril 10 mg tablet 10 mg PO BID amlodipine 2.5 mg tablet 2.5 mg PO HS Health Concerns: Post Hospitalization: new medications and changes needed to prevent readmission or further decline. Pt educated and given instructions on all concerns. Plan of Treatment: Continue with present treatment and follow up plan. Pt is to keep follow up appointment as instructed and take medications as ordered. Orders to Discharge Patient Discharge Orders: Transfer (Routine); Ordered 01/09/25 Ordered By: Reilly Navarro Follow ups/Referrals Follow ups/Referrals: TIMOTHY HARTMAN [Primary Care Provider] - 3 days Instructions Stand Alone Forms: Find Help Web Site, Post Hospital Follow Up Care ADDITIONAL NOTES Additional Notes Additional Notes: pts heart rate increased to over 150.given CARDIZEM IV10 MGX 2 .RATE STILL ABOVE 120.START iv CARDIZEM DRIP .Cardiac enzymes normal ,TSH normal Spoke with Dr hay to admit .Agreed
[2025-01-08] MEDS: APRESOLINE INJ 20 MG VIAL IVP ONE (23:41)
[2025-01-09] LABS: BASOPHILS % (AUTO) 1.1 % (0.2-1.0); EOSINOPHILS % (AUTO) 0.1 % (0.9-2.9); HEMATOCRIT 32.8 % (36.0-47.0); LYMPHOCYTES # (AUTO) 1.4 X10^3/uL (1.3-2.9); LYMPHOCYTES % (AUTO) 30.9 % (21.0-51.0); MEAN CORPUSCULAR HEMOGLOBIN 29.5 pg (27.0-34.0); MEAN CORPUSCULAR HGB CONC 33.4 g/dL (33.0-35.0); MEAN CORPUSCULAR VOLUME 88.2 fL (80.0-100.0); MEAN PLATELET VOLUME 7.7 fL (7.4-11.0); MONOCYTES # (AUTO) 0.5 x10^3/uL (0.3-0.8); MONOCYTES % (AUTO) 10.4 % (0.0-13.0); NEUTROPHILS # (AUTO) 2.5 x10^3/uL (2.2-4.8); NEUTROPHILS % (AUTO) 57.5 % (42.0-75.0); PLATELET COUNT 186 X10^3/uL (150.0-450.0); RED BLOOD COUNT 3.72 X10^6/uL (3.5-5.4); RED CELL DISTRIBUTION WIDTH 14.8 % (11.6-16.5); WHITE BLOOD COUNT 4.4 X10^3/uL (3.6-10.0)
[2025-01-09 00:14] LABS: ALANINE AMINOTRANSFERASE 29 Units/L (12-78); ALBUMIN 3.9 g/dL (3.4-5.0); ALKALINE PHOSPHATASE 80 Units/L (46-116); ASPARTATE AMINO TRANSFERASE 34 Units/L (15-37); BLOOD UREA NITROGEN 21 mg/dL (7-18); CALCIUM 9.7 mg/dL (8.5-10.1); CHLORIDE 105 mmol/L (98-107); COR NA(FOR HYPERGLY) 144 mmol/L (136-145); CREATININE 0.78 mg/dL (0.55-1.02); GLUCOSE 111 mg/dL (65-99); MAGNESIUM 1.9 mg/dL (2.0-2.9); POTASSIUM 3.7 mmol/L (3.5-5.1); SODIUM 144 mmol/L (136-145); TOTAL PROTEIN 7.2 g/dL (6.4-8.2); TSH (3RD GENERATION) 3.298 uIU/mL (0.358-3.74); eGFR NON BLACK RACES > 60 (>60)
[2025-01-09] MEDS: CARDIZEM INJ 50 MG VIAL IVP ONE ×2 (00:41→01:08)
--- NOTE | 2025-01-09 00:50 | EKG ---
Test Reason : rapid heart rate Blood Pressure : */* mmHG Vent. Rate : 90 BPM Atrial Rate : * BPM P-R Int : * ms QRS Dur : 88 ms QT Int : 330 ms P-R-T Axes : * 5 112 degrees QTc Int : 403 ms Atrial fibrillation Abnormal ECG When compared with ECG of 18-NOV-2022 03:46, Atrial fibrillation has replaced Sinus rhythm Vent. rate has increased BY [address] now depressed in Inferior leads ST now depressed in Lateral leads Nonspecific T wave abnormality, worse in Inferior leads T wave inversion now evident in Anterolateral leads Confirmed by Robert Bishop MD ([id number]) on 01/09/2025 5:20:56 PM Referred By: Confirmed By: Robert Bishop MD
[2025-01-09] MEDS: CARDIZEM INJ 125 MG VIAL 125 MG in NS 100 ML IV 100 ML IV PRN (01:59)
--- NOTE | 2025-01-09 08:42 | EKG ---
Test Reason : afib with rvr Blood Pressure : */* mmHG Vent. Rate : 92 BPM Atrial Rate : * BPM P-R Int : * ms QRS Dur : 82 ms QT Int : 370 ms P-R-T Axes : * 17 18 degrees QTc Int : 457 ms Atrial fibrillation Nonspecific ST abnormality Abnormal ECG When compared with ECG of 09-JAN-2025 00:28, (Unconfirmed) Nonspecific T wave abnormality, improved in Inferior leads T wave inversion no longer evident in Anterolateral leads Confirmed by Robert Bishop MD ([id number]) on 01/09/2025 5:20:46 PM Referred By: Confirmed By: Robert Bishop MD
[2025-01-09] MEDS: SYNTHROID 25 mcg TAB PO SCH (09:15)
[2025-01-09] MEDS: ELIQUIS PO SCH (09:15)
[2025-01-09] MEDS: TOPROL XL PO SCH (10:41)
[2025-01-09] MEDS: MAGNESIUM SULFATE 1 GRAM/100 mL PREMIX 1 G/100 ML BAG IV SCH (10:41)
[2025-01-09] MEDS: CARDIZEM INJ 125 MG VIAL ONE (18:04)
[2025-01-09] MEDS: APRESOLINE INJ 20 MG VIAL ONE (18:04)
[2025-01-09] MEDS: NS 100 ML IV 100 ML ONE (18:04)
[2025-01-09] MEDS: CARDIZEM INJ 50 MG VIAL ONE (18:04)
--- NOTE | 2025-01-09 18:41 | EKG ---
Test Reason : bradycardia Blood Pressure : */* mmHG Vent. Rate : 52 BPM Atrial Rate : 52 BPM P-R Int : 126 ms QRS Dur : 90 ms QT Int : 446 ms P-R-T Axes : 24 1 35 degrees QTc Int : 414 ms Sinus bradycardia Nonspecific ST abnormality Abnormal ECG When compared with ECG of 09-JAN-2025 08:23, Sinus rhythm has replaced Atrial fibrillation Vent. rate has decreased BY 40 BPM Confirmed by Robert Bishop MD ([id number]) on 01/10/2025 7:24:12 AM Referred By: Confirmed By: Robert Bishop MD
[2025-01-09] MEDS: ZOCOR TAB 10 MG PO SCH (20:56)
[2025-01-09] MEDS ORDERED: LOPRESSOR TAB 50 MG PO PRN (21:00)
[2025-01-09] MEDS ORDERED: TOPROL XL PO SCH (21:00)
[2025-01-10 04:57] LABS: BASOPHILS % (AUTO) 0.4 % (0.2-1.0); EOSINOPHILS % (AUTO) 0.1 % (0.9-2.9); HEMATOCRIT 34.6 % (36.0-47.0); HEMOGLOBIN 11.6 g/dL (12.0-16.0); LYMPHOCYTES # (AUTO) 1.3 X10^3/uL (1.3-2.9); LYMPHOCYTES % (AUTO) 28.8 % (21.0-51.0); MEAN CORPUSCULAR HEMOGLOBIN 29.4 pg (27.0-34.0); MEAN CORPUSCULAR HGB CONC 33.5 g/dL (33.0-35.0); MEAN CORPUSCULAR VOLUME 87.6 fL (80.0-100.0); MEAN PLATELET VOLUME 7.4 fL (7.4-11.0); MONOCYTES # (AUTO) 0.5 x10^3/uL (0.3-0.8); MONOCYTES % (AUTO) 11.7 % (0.0-13.0); NEUTROPHILS # (AUTO) 2.7 x10^3/uL (2.2-4.8); PLATELET COUNT 193 X10^3/uL (150.0-450.0); RED BLOOD COUNT 3.95 X10^6/uL (3.5-5.4); WHITE BLOOD COUNT 4.6 X10^3/uL (3.6-10.0)
[2025-01-10 05:12] LABS: ALANINE AMINOTRANSFERASE 23 Units/L (12-78); ALBUMIN 3.4 g/dL (3.4-5.0); ALKALINE PHOSPHATASE 71 Units/L (46-116); ASPARTATE AMINO TRANSFERASE 27 Units/L (15-37); BLOOD UREA NITROGEN 12 mg/dL (7-18); CALCIUM 9.3 mg/dL (8.5-10.1); CARBON DIOXIDE 25.4 mmol/L (21-32); CHLORIDE 107 mmol/L (98-107); COR NA(FOR HYPERGLY) 143 mmol/L (136-145); CREATININE 0.65 mg/dL (0.55-1.02); GLUCOSE 116 mg/dL (65-99); MAGNESIUM 2.1 mg/dL (2.0-2.9); POTASSIUM 3.9 mmol/L (3.5-5.1); SODIUM 143 mmol/L (136-145); TOTAL PROTEIN 6.6 g/dL (6.4-8.2); eGFR NON BLACK RACES > 60 (>60)
[2025-01-10 05:44] VITALS: TEMP 98.4
[2025-01-10] MEDS: ZESTRIL TAB 10 MG PO STA (09:54)
[2025-01-10 10:44] VITALS: BP 168/78; PULSE 58; RESP 34; O2SAT 99
== END 2025-01-10 11:10 | disposition home or self-care (01) ==
LOC: ER 22:50 → INTOOBSV 01-09 03:56 → ICU 01-09 03:56
PROVIDERS: ADMIT Obstetrics & Gynecology Obstetrics; ATTEND Obstetrics & Gynecology Obstetrics
DX: E03.8 Other specified hypothyroidism; E78.5 Hyperlipidemia, unspecified; E83.42 Hypomagnesemia; I10 Essential (primary) hypertension; I48.91 Unspecified atrial fibrillation; R94.31 Abnormal electrocardiogram [ECG] [EKG]; I47.29 Other ventricular tachycardia; Z79.01 Long term (current) use of anticoagulants